=== PATIENT | male | born 1995 | race Caucasian/White ===

== ENCOUNTER 2018-03-27 14:09 | Emergency (ER) | payer SELFPAY ==
[~2018-03-27] VITALS: Ht 195.6 cm; Wt 75.9 kg
[2018-03-27 14:16] VITALS: BP 145/102
[2018-03-27] MEDS ORDERED: LIDOCAINE-MPF 1%, 5ML INFIL ONE (14:30)
[2018-03-27] MEDS ORDERED: LIDOCAINE-MPF 1%, 5ML ONE (14:31)
== END 2018-03-27 15:35 | disposition home or self-care (01) ==
LOC: ED 15:30
DX: S81.031A Puncture wound without foreign body, right knee, initial encounter (principal); W54.0XXA Bitten by dog, initial encounter; Y93.89 Activity, other specified; Y92.098 Other place in other non-institutional residence as the place of occurrence of the external cause; Y99.8 Other external cause status
CPT/HCPCS: 12031; 99284